=== PATIENT | male | born 1965 | race Caucasian/White ===

== ENCOUNTER 2016-10-06 13:15 | Emergency (ER) | payer OTHER ==
[~2016-10-06] VITALS: Ht 177.8 cm; Wt 99.8 kg
[~2016-10-06 13:15] MED LIST: ALPRAZOLAM2 MG PO; AMOXIL500 MG PO; BACTRIM DS 8001 TAB PO; METFORMIN HCL1000 M1 PO; METHADONE H5 MG/5 M1 PO; METHADONE HYDRO10 MG PO
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
[2016-10-06 14:45] LABS: ABSOLUTE BASOPHIL COUNT 0.1 /CUMM (0.0-0.2); ABSOLUTE EOSINOPHIL COUNT 0.1 /CUMM (0.0-0.7); ABSOLUTE GRANULOCYTE CT 6.1 /CUMM (1.4-6.5); ABSOLUTE LYMPH COUNT 3.4 /CUMM (1.2-3.4); BASOPHIL % 0.8 % (0.0-2.0); GRANULOCYTE % 56.8 % (42.2-75.2); HEMATOCRIT 43.1 % (42-52); MEAN CORPUSCULAR HGB 29.9 PG (27.0-31.0); MEAN CORPUSCULAR HGB CONC 33.7 G/DL (33.0-37.0); MEAN CORPUSCULAR VOLUME 88.6 FL (80.0-94.0); MEAN PLATELET VOLUME 8.6 FL (7.4-10.4); PLATELET COUNT 169 /CUMM (130-400); RBC DISTRIBUTION WIDTH 14.3 % (11.5-14.5); RED BLOOD CELL CT 4.86 /CUMM (4.70-6.10); WHITE BLOOD CELL COUNT 10.8 /CUMM (4.8-10.8)
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
[2016-10-06 16:28] VITALS: BP 114/62
[2016-10-06] MEDS ORDERED: PERCOCET 5-3251 EACH PO (16:28)
[2016-10-06] MEDS ORDERED: VALIUM2 M1 PO (16:39)
== END 2016-10-06 16:46 ==
LOC: ERH 13:15
PROVIDERS: Physician Assistant
DX: S82.452A Displaced comminuted fracture of shaft of left fibula, initial encounter for closed fracture (principal); S82.852A Displaced trimalleolar fracture of left lower leg, initial encounter for closed fracture; V28.4XXA Motorcycle driver injured in noncollision transport accident in traffic accident, initial encounter; Y93.9 Activity, unspecified; Y92.488 Other paved roadways as the place of occurrence of the external cause
CPT/HCPCS: 73590-LT; 73610-LT; 73630-LT; 96372

== ENCOUNTER 2016-10-11 18:56 | Inpatient (IN) | payer OTHER ==
[~2016-10-11] VITALS: Ht 177.8 cm; Wt 102.1 kg
[~2016-10-11 18:56] MED LIST changes: +PERCOCET 5-3251 EACH PO; +VALIUM2 M1 PO
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
--- NOTE | 2016-10-11 19:37 | NUR ---
EKG DONE DUE TO HR 132 ON ARRIVAL TO ROOM. PT REPORTS SEVERE PAIN. OLIVIER HERNANDEZ AT BEDSIDE FOR EVAL.
--- NOTE | 2016-10-11 20:14 | NUR ---
IV PLACED, MEDICATED WITH DILAUDID, TO US ON STRETCHER. SPLINT REMOVED BY OLIVIER HERNANDEZ.
--- NOTE | 2016-10-11 20:41 | NUR ---
LABS SENT (BLUE,SST,LAV,NUR, BC #2)
[2016-10-11 20:50] LABS: ABSOLUTE BASOPHIL COUNT 0.1 /CUMM (0.0-0.2); ABSOLUTE EOSINOPHIL COUNT 0.1 /CUMM (0.0-0.7); ABSOLUTE LYMPH COUNT 1.9 /CUMM (1.2-3.4); ABSOLUTE MONOCYTE COUNT 0.6 /CUMM (0.10-0.60); BASOPHIL % 0.6 % (0.0-2.0); GRANULOCYTE % 72.2 % (42.2-75.2); MEAN CORPUSCULAR HGB 30.2 PG (27.0-31.0); MEAN CORPUSCULAR HGB CONC 33.6 G/DL (33.0-37.0); MEAN CORPUSCULAR VOLUME 89.8 FL (80.0-94.0); MEAN PLATELET VOLUME 7.8 FL (7.4-10.4); PLATELET COUNT 160 /CUMM (130-400); RBC DISTRIBUTION WIDTH 13.7 % (11.5-14.5); WHITE BLOOD CELL COUNT 9.6 /CUMM (4.8-10.8)
[2016-10-11 20:51] LABS: EOSINOPHIL % 0.1 % (0-5); HEMATOCRIT 37.8 % (42-52)
--- NOTE | 2016-10-11 21:03 | ULTRASOUND REPORT ---
EXAMINATION: US TRIPLEX LOWER EXTREMITY, LEFT CLINICAL INFORMATION: Left lower extremity pain and swelling. COMPARISON: 10/06/2016. TECHNIQUE: Color-flow triplex imaging with spectral analysis and compression Doppler were performed on the left lower extremity. FINDINGS: Respiratory variation, normal compression and augmented flow are noted throughout the lower extremity. The visualized common femoral vein, femoral vein, profunda femoral vein, popliteal vein and midcalf peroneal and posterior tibial venous segments show no evidence of deep venous thrombosis. There is no Pascal's cyst. IMPRESSION: Normal triplex scan without evidence of deep venous thrombosis involving the left lower extremity.
--- NOTE | 2016-10-11 21:06 | RADIOLOGY REPORT ---
EXAMINATION: XR TIBIA AND FIBULA, LEFT CLINICAL INFORMATION: Fall. Pain. COMPARISON: None TECHNIQUE: AP and lateral views of the left tibia and fibula were obtained. FINDINGS: There is an oblique slightly displaced fracture of the proximal fibula at the proximal diaphysis. The tibia is intact. Knee and ankle joint are normal. IMPRESSION: Oblique fracture of the proximal shaft of the fibula.
--- NOTE | 2016-10-11 21:07 | RADIOLOGY REPORT ---
EXAMINATION: XR FOOT, LEFT CLINICAL INFORMATION: Fall. COMPARISON: None TECHNIQUE: AP, lateral, and oblique views of the left foot. FINDINGS: No fracture. No dislocation. No acute osseous abnormality. There is soft tissue swelling at the dorsum of the forefoot. Small plantar calcaneal spur. IMPRESSION: No acute osseous abnormality. Soft tissue swelling at the forefoot.
[2016-10-11] MEDS ORDERED: GLIPIZIDE ER10 M1 PO (21:32)
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
--- NOTE | 2016-10-11 22:04 | NUR ---
IV KEFZOL INFUSING. PHARMACY NOTIFIED OF NEED TO RE-TIME NEXT DOSE FROM 0000 TO 0400. PT MEDICATED WITH MORPHINE FOR C/O PAIN, AWARE THAT MORPHINE IS Q4H PRN, AWARE OF ALTERNATIVES OF TYLENOL/TORADOL ALSO. HOUSE STAFF AT BEDSIDE NOW. LEFT LEG ELEVATED FOR COMFORT. PT WEARING T-SHIRT AND SHORT, REFUSES TO WEAR GOWN, REFUSES RED SOCK ON LEFT FOOT. STILL UNABLE TO PROVIDE URINE SAMPLE, URINAL AT BEDSIDE.
--- NOTE | 2016-10-11 22:33 | NUR ---
REPEAT LACTIC, ABO CONFIRMATION AND EXTRA SST AND LAV DRAWN AND SENT. PT AWARE OF PENDING TRANSFER TO FLOOR. REMINDED AGAIN OF SCHEDULE OF PRN MORPHINE.
--- NOTE | 2016-10-11 22:43 | NUR ---
REPORT CALLED TO SONIA ON 2NA.
[2016-10-11 23:00] VITALS: BP 120/64
--- NOTE | 2016-10-11 23:53 | Admission Certification ---
Admission Certification Certification Statement - As attending physician, I certify that at the time of - admission, based on clinical presentation, severity of - symptoms, need for further diagnostic testing and - therapeutic interventions, and risk of adverse outcomes - without in-hospital treatment, in my clinical assessment, - this patient requires an acute hospital stay for a minimum - of two nights or longer. I have also considered psychsocial - factors such as support system, advanced age, financial - issues, cognitive issues, and failed out-patient treatments, - past re-admission history, safety of patient, and lack of - compliance as applicable. Specific rationale supporting this admission is: Left lower extremity cellulitis.
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
[2016-10-12 07:09] VITALS: BP 100/70
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
[2016-10-12 08:39] LABS: ABSOLUTE EOSINOPHIL COUNT 0.1 /CUMM (0.0-0.7); ABSOLUTE GRANULOCYTE CT 3.4 /CUMM (1.4-6.5); ABSOLUTE LYMPH COUNT 1.8 /CUMM (1.2-3.4); ABSOLUTE MONOCYTE COUNT 0.6 /CUMM (0.10-0.60); EOSINOPHIL % 2.3 % (0-5); MEAN CORPUSCULAR HGB 30.6 PG (27.0-31.0)
[2016-10-12 08:47] LABS: ABSOLUTE BASOPHIL COUNT 0 /CUMM (0.0-0.2); BASOPHIL % 0.7 % (0.0-2.0); GRANULOCYTE % 57.4 % (42.2-75.2); MEAN CORPUSCULAR HGB CONC 34.1 G/DL (33.0-37.0); MEAN CORPUSCULAR VOLUME 89.7 FL (80.0-94.0); MEAN PLATELET VOLUME 8.2 FL (7.4-10.4); PLATELET COUNT 131 /CUMM (130-400); RBC DISTRIBUTION WIDTH 13.6 % (11.5-14.5)
[2016-10-12 09:04] LABS: HEMATOCRIT 32.3 % (42-52)
--- NOTE | 2016-10-12 12:44 | NUR ---
PT IS COMPLAINING THAT THE PAIN MEDICATIONS ORDERED FOR HIM ARE NOT HELPING HIS PAIN. MD SAPNA ROMERO MADE AWARE. WILL CONTINUE TO MONITOR.
--- NOTE | 2016-10-12 12:54 | RADIOLOGY REPORT ---
EXAMINATION: XR ANKLE, LEFT CLINICAL INFORMATION: maisonneuve fracture left ankle. COMPARISON: None TECHNIQUE: AP, lateral, and mortise views of the left ankle. FINDINGS: Only the distal tibia and fibula and the ankle joint is in the [id number]. There is bimalleolar soft tissue swelling. No fracture or dislocation seen involving the distal tibia or fibula. A small calcaneal heel spur is seen. Also visualized is anterior talotibial spurring and retrocalcaneal spur. IMPRESSION: No visible acute fracture seen on the visualized images. There is bimalleolar soft tissue swelling. There is mild degenerative spurring talotibial joint, retrocalcaneal and the calcaneal heel.
[2016-10-12 14:08] VITALS: BP 130/60
[2016-10-12 21:42] VITALS: BP 124/60
--- NOTE | 2016-10-13 01:00 | NUR ---
PT REPORTS PAIN 04/08, NOTIFIED POLY PHILLIPS MD.
[2016-10-13 06:54] VITALS: BP 128/60
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
[2016-10-13 13:42] VITALS: BP 158/90
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
[2016-10-13] MEDS ORDERED: KEFLEX500 M1 PO (17:34)
--- NOTE | 2016-10-13 18:00 | NUR ---
1800- PT COMPLAINING OF PAIN 10/10 TO LLE. STATES HE DOES NOT GET RELIEF FROM ROXICODONE 15 MG PO Q4. TIME CHANGED FROM Q6 TO Q4 THIS AFTERNOON. PT STILL STATES HE IS IN PAIN 10/10. PT'S MOTHER CALLED ME THIS MORNING DUE TO PT CALLING HER AND TELLING HER TO BRING PAIN MEDS TO HIM. PT HAS ALSO ASKED OF [facility] IF SHE HAD ANY PAIN MEDICATION 15 MINUTES AGO. ABOVE REPORTED TO DR. 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
[2016-10-13 21:59] VITALS: BP 140/70
[2016-10-14 07:00] VITALS: BP 138/80
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
[2016-10-14 09:37] LABS: ABSOLUTE BASOPHIL COUNT 0 /CUMM (0.0-0.2); ABSOLUTE EOSINOPHIL COUNT 0.1 /CUMM (0.0-0.7); ABSOLUTE GRANULOCYTE CT 6.3 /CUMM (1.4-6.5); ABSOLUTE LYMPH COUNT 1.6 /CUMM (1.2-3.4); ABSOLUTE MONOCYTE COUNT 0.5 /CUMM (0.10-0.60); BASOPHIL % 0.3 % (0.0-2.0); EOSINOPHIL % 1.7 % (0-5); GRANULOCYTE % 73.5 % (42.2-75.2); HEMATOCRIT 36.2 % (42-52); MEAN CORPUSCULAR HGB 30.8 PG (27.0-31.0); MEAN CORPUSCULAR HGB CONC 34.6 G/DL (33.0-37.0); MEAN PLATELET VOLUME 8.4 FL (7.4-10.4); PLATELET COUNT 177 /CUMM (130-400); RBC DISTRIBUTION WIDTH 13.5 % (11.5-14.5); RED BLOOD CELL CT 4.07 /CUMM (4.70-6.10); WHITE BLOOD CELL COUNT 8.6 /CUMM (4.8-10.8)
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
[2016-10-14 14:35] VITALS: BP 122/80
[2016-10-14 22:57] VITALS: BP 130/90
[2016-10-15 06:59] VITALS: BP 100/70
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
--- NOTE | 2016-10-15 09:46 | NUR ---
PHYSICAL THERAPY: ATTEMPTED TO SEE PATIENT THIS MORNING, PATIENT IS REFUSING TO PARTICIPATE. PT EDUCATED ON THE BENEFITS OF SITTING EOB OR STANDING FOR A SHORT PERIOD OF TIME, HOWEVER PATIENT CONTINUES TO REFUSE. PT REPORTS THAT HE IS IN 10/10 PAIN APPEARING CALM AND SHOWING NO SIGNS OF DISTRESS. PT'S DEMEANER AND APPEARANCE NOT CONSISTENT WITH 10/10 PAIN HOWEVER PT IS REQUESTING ADDITIONAL PAIN MEDS AND REFUSES TO COOPERATE WITH P.T. UNLESS HE GETS MORE MEDS. NSG NOTIFIED AND STATES THAT THE PT CANNOT HAVE MORE MEDS AT THIS TIME. WILL ATTEMPT TO SEE PT AGAIN IN THE AFTERNOON APPROPRIATE. THANK YOU.
[2016-10-15 13:34] VITALS: BP 128/80
[2016-10-15] MEDS ORDERED: KEFLEX500 M1 PO (14:00)
[2016-10-15] MEDS ORDERED: OXYCODONE HCL15 M1 PO (14:06)
[2016-10-15 14:39] VITALS: BP 128/80
== END 2016-10-15 16:00 | DRG 383 ==
LOC: ENRESERVTM → ENRESERVDT → ERH 18:56 → 2NA 21:45 → ERHI 21:45 → 2NA 22:52
PROVIDERS: Internal Medicine Hematology & Oncology; Physician Assistant; Student in an Organized Health Care Education/Training Program; ADMIT Student in an Organized Health Care Education/Training Program
DX: L03.115 Cellulitis of right lower limb (principal); B18.2 Chronic viral hepatitis C; E11.9 Type 2 diabetes mellitus without complications; F17.200 Nicotine dependence, unspecified, uncomplicated; B19.20 Unspecified viral hepatitis C without hepatic coma; S82.891D Other fracture of right lower leg, subsequent encounter for closed fracture with routine healing; S82.401D Unspecified fracture of shaft of right fibula, subsequent encounter for closed fracture with routine healing; I10 Essential (primary) hypertension; Z79.84 Long term (current) use of oral hypoglycemic drugs; F41.9 Anxiety disorder, unspecified; W18.30XD Fall on same level, unspecified, subsequent encounter
CPT/HCPCS: 2NAP; 2NASP; 36415; 73590-LT; 73610-LT; 73630-LT; 81001; 82436; 87040; 93005; 93010; 96374; 96375; J0690; J1170; J1644

== ENCOUNTER 2016-11-11 18:04 | Emergency (ER) | payer OTHER ==
[~2016-11-11] VITALS: Ht 177.8 cm; Wt 99.8 kg
[~2016-11-11 18:04] MED LIST changes: +GLIPIZIDE ER10 M1 PO; +KEFLEX500 M1 PO; +OXYCODONE HCL15 M1 PO
[2016-11-11 19:29] LABS: ABSOLUTE BASOPHIL COUNT 0 /CUMM (0.0-0.2); ABSOLUTE EOSINOPHIL COUNT 0.2 /CUMM (0.0-0.7); ABSOLUTE GRANULOCYTE CT 3.5 /CUMM (1.4-6.5); ABSOLUTE LYMPH COUNT 1.6 /CUMM (1.2-3.4); ABSOLUTE MONOCYTE COUNT 0.3 /CUMM (0.10-0.60); BASOPHIL % 0.3 % (0.0-2.0); EOSINOPHIL % 3.4 % (0-5); GRANULOCYTE % 61.9 % (42.2-75.2); HEMATOCRIT 40.4 % (42-52); MEAN CORPUSCULAR HGB 29.6 PG (27.0-31.0); MEAN CORPUSCULAR HGB CONC 33.4 G/DL (33.0-37.0); MEAN CORPUSCULAR VOLUME 88.6 FL (80.0-94.0); MEAN PLATELET VOLUME 8.9 FL (7.4-10.4); RED BLOOD CELL CT 4.57 /CUMM (4.70-6.10); WHITE BLOOD CELL COUNT 5.6 /CUMM (4.8-10.8)
[2016-11-11 19:40] LABS: PLATELET COUNT 108 /CUMM (130-400)
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
[2016-11-11] MEDS ORDERED: BACTRIM DS TAB1 EACH PO (19:53)
[2016-11-11] MEDS ORDERED: KEFLEX500 M1 PO (19:53)
[2016-11-11] MEDS ORDERED: OXYCODONE HCL5 M1 PO (19:53)
[2016-11-11 20:35] VITALS: BP 138/86
[2016-11-11] MEDS ORDERED: LOTRIMIN AF12 GM TOP (21:21)
== END 2016-11-11 20:36 ==
LOC: ERH 18:04
PROVIDERS: Physician Assistant Medical
DX: L03.116 Cellulitis of left lower limb (principal); B35.3 Tinea pedis
CPT/HCPCS: 87040; 96374; J0690

== ENCOUNTER 2016-11-23 17:30 | Emergency (ER) | payer OTHER ==
[~2016-11-23] VITALS: Ht 177.8 cm; Wt 99.8 kg
[~2016-11-23 17:30] MED LIST changes: +BACTRIM DS TAB1 EACH PO; +LOTRIMIN AF12 GM TOP; +OXYCODONE HCL5 M1 PO
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
[2016-11-23] MEDS ORDERED: CLOTRIMAZOLE15 GM TOP (18:29)
[2016-11-23] MEDS ORDERED: OXYCODONE HCL20 M2 PO (18:29)
[2016-11-23] MEDS ORDERED: DIAZEPAM2 M1 (18:30)
[2016-11-23] MEDS ORDERED: FLUOXETINE HCL20 M2 (18:30)
[2016-11-23] MEDS ORDERED: MELOXICAM15 M1 PO (19:27)
[2016-11-23 19:32] VITALS: BP 130/76
--- NOTE | 2016-12-10 13:42 | RADIOLOGY REPORT ---
EXAMINATION: XR ANKLE, LEFT CLINICAL INFORMATION: Fall. History of a recent proximal fibular fracture. Wearing a walking boot. COMPARISON: Multiple priors, most recent left ankle radiographs dated 10/12/2016. TECHNIQUE: AP, lateral, and mortise views of the left ankle. FINDINGS: No distal tibia or fibular fracture. The proximal fibula is not included on this examination. Small tibiotalar marginal osteophytes. The ankle mortise is well-maintained. No joint space narrowing. No osseous erosion. Plantar and dorsal calcaneal spurs. Mild circumferential soft tissue swelling. IMPRESSION: 1. No fracture. The previously seen proximal fracture is not included on this examination. 2. Mild circumferential soft tissue edema. 3. Mild tibiotalar osteoarthritis. 4. Small plantar and dorsal calcaneal spurs.
== END 2016-11-23 19:33 ==
LOC: ERH 17:30
DX: M25.572 Pain in left ankle and joints of left foot (principal)
CPT/HCPCS: 73610-LT

== ENCOUNTER 2017-10-07 14:07 | Emergency (ER) | payer OTHER ==
[~2017-10-07 14:07] MED LIST changes: +CLONIDINE HCL0.1 MG; +CLOTRIMAZOLE15 GM TOP; +CYCLOBENZAPRINE5 M2 PO; +DIAZEPAM2 M1; +FLUOXETINE HCL20 M2; +LOSARTAN POTASS25 M1; +MELOXICAM15 M1 PO; +OXYCODONE HCL20 M2 PO
--- NOTE | 2017-10-07 14:46 | ED AMS/SEIZURE/WEAK/DIZZY ---
History of Present Illness General Chief Complaint: Altered Mental Status Stated Complaint: BIBA FOR ALTERED MENTAL STATUS/EVAL Source: patient Exam Limitations: no limitations Vital Signs & Intake/Output Vital Signs & Intake/Output Vital Signs Date Time Temp Pulse Resp B/P B/P Pulse O2 O2 Flow FiO2 Mean Ox Delivery Rate 10/07 1726 68 18 82/58 100 Room Air 10/07 1646 82 16 153/87 93 Room Air 10/07 1545 68 18 106/60 95 Room Air 10/07 1436 80 16 100/62 96 Room Air 10/07 1410 96.2 80 18 112/60 94 Room Air Allergies Coded Allergies: No Known Allergies (08/08/17) Reconcile Medications Clonidine HCl (Unknown Strength) TABLET (Unknown Dose) UNKNOWN (Reported) Cyclobenzaprine HCl 5 MG TABLET 1 TAB PO TIDPRN PRN muscle relaxer Glipizide (Glipizide ER) 10 MG TAB.ER.24 1 TAB PO DAILY DIABETES (Reported) Losartan Potassium (Unknown Strength) TABLET (Unknown Dose) UNKNOWN (Reported ) Metformin HCl 1,000 MG TABLET 1 TAB PO BID DM (Reported) Sulfamethoxazole/Trimethoprim (Bactrim Ds Tablet) 800 MG-160 MG TABLET 1 TAB PO BID CELLULITIS Triage Note: 52 YEAR OLD MALE BIBA FROM HOME. POLICE WERE CALLED BY FAMILY. EMS FOUND HIM ASLEEP ON SOFA AND HYPERTENSIVE WITH FINGER STICK BLOOD SUGAR OF 481. HE WAS ABLE TO GET DRESSED & AMBULATE TO AMBULANCE. HX HEPATITIS C (ON HARVONI), HX DEPRESSION, HX OPIOIDS AND COCAINE. ALSO PSYCHE HX. PATIENT APPEARS DROWSY, BUT ABLE TO ANSWER QUESTIONS. HEART RATE = 80. BP = 112/60. Triage Nurses Notes Reviewed? yes HPI: Patient presents for evaluation of altered mental status/somnolence. History is extremely limited given the patient's current clinical condition. Family called the police due to altered mental status and EMS found patient to Asleep on the sofa. Past History Travel History Traveled to [place] past 21 day No Medical History Any Pertinent Medical History? see below for history Neurological: NONE EENT: NONE Cardiovascular: htn Respiratory: NONE Gastrointestinal: NONE Hepatic: HEP C Renal: NIDDM Musculoskeletal: disk herniation, MULTIPLE SURGIRES Psychiatric: DEPRESSION, PAIN MANAGEME Endocrine: NIDDM Blood Disorders: HEPC Cancer(s): NONE History of MRSA: No History of VRE: No History of CDIFF: No Surgical History Surgical History: knee surgery, right shoulder surgery Psychosocial History Who do you live with Patient and family Services at Home None What is your primary language Sami Tobacco Use: Current Not Daily ETOH Use: UNKNOWN Illicit Drug Use: UNKNOWN Family History Family History, If Any: MOTHER FATHER Relation not specified for: FH: arthritis FH: pancreatic cancer Hx Contributory? No Review of Systems Review of Systems Constitutional: Reports: no symptoms. EENTM: Reports: no symptoms. Respiratory: Reports: no symptoms. Cardiovascular: Reports: no symptoms. GI: Reports: no symptoms. Genitourinary: Reports: no symptoms. Musculoskeletal: Reports: no symptoms. Skin: Reports: no symptoms. Neurological/Psychological: Reports: no symptoms. Hematologic/Endocrine: Reports: no symptoms. Immunologic/Allergic: Reports: no symptoms. All Other Systems: Reviewed and Negative Physical Exam Physical Exam General Appearance: SEE BELOW Comments: Gen.: Well-nourished, well-developed, no acute respiratory distress. Somnolent but easily arousable. Head: Normocephalic, atraumatic. Eyes: Normal inspection bilaterally, PERRLA Ears: Normal inspection bilaterally Nose: Normal inspection Throat/mouth : Moist mucosa Neck: Supple, full range of motion, no goiter Heart: Regular rate and rhythm, no murmurs rubs or gallops Lungs: Clear to auscultation bilaterally with normal air entry Chest: Nontender Back: Normal range of motion Abdomen: Soft, nontender, nondistended, normal bowel sounds Extremities: Normal range of motion grossly, equal radial pulses, no cyanosis, mild bilateral pitting pretibial edema Neurologic: Cranial nerves grossly intact, speech is clear Skin: warm and dry Psychiatric: Calm, inconsistently cooperative, no apparent delusions or hallucinations, paucity of speech secondary to somnolence Core Measures ACS in differential dx? No CVA/TIA Diagnosis No Sepsis Present: No Sepsis Focused Exam Completed? No Progress Differential Diagnosis: anemia, CVA/stroke, dehydration, drug intoxication, electrolyte imbalance, hypoglycemia, hypoxia, intracranial Hem., intracranial mass/tumor, pneumonia, sepsis, seizure disorder, UTI/pyelo Plan of Care: Orders Procedure Date/time Status Saline Lock 10/07 1444 Active CULTURE,URINE 10/07 1444 Active URINE DRUG SCREEN FOR ER ONLY 10/07 1444 Complete URINALYSIS 04/10 1445 Complete THYROID STIMULATING HORMONE 10/07 144 Complete TROPONIN LEVEL 10/07 144 Complete T3 UPTAKE (THYROXINE BIND CAP) 10/07 144 Complete THYROXINE 10/07 144 Complete ETHANOL 10/07 144 Complete COMPREHENSIVE METABOLIC PANEL 10/07 144 Complete CBC WITHOUT DIFFERENTIAL 10/07 1444 Complete EKG 10/07 144 Active Laboratory Tests 10/07/17 1640: Urine Opiates Screen 253, Methadone Screen > 735 H, Barbiturate Screen < 60, Ur Phencyclidine Scrn < 6.00, Amphetamines Screen < 100, U Benzodiazepines Scrn > 800 H, Urine Cocaine Screen < 50, Urine Cannabis Screen < 5.00, Urine Color YEL , Urine Clarity CLEAR, Urine pH 6.5, Ur Specific Lilly 1.015, Urine Protein NEG, Urine Ketones NEG, Urine Nitrite NEG, Urine Bilirubin NEG, Urine Urobilinogen 0.2, Ur Leukocyte Esterase NEG, Ur Microscopic EXAM NOT REQUIRED, Urine Hemoglobin NEG, Urine Glucose >=1000 H 10/07/17 1620: Anion Gap 8, Estimated GFR > 60, BUN/Creatinine Ratio 20.0, Glucose 356 H, Calcium 8.5, Total Bilirubin 0.6, AST 102 H, ALT 94 H, Alkaline Phosphatase 119, Troponin I < 0.01, Total Protein 6.9, Albumin 3.3 L, Globulin 3.6, Albumin /Globulin Ratio 0.9 L, TSH 1.470, Thyroxine (T4) 8.5, Thyroxine Binding Indx 30.9, Serum Alcohol < 10.0 10/07/17 1445: CBC w Diff NO MAN DIFF REQ, RBC 4.17 L, MCV 88.7, MCH 30.3, MCHC 34.2, RDW 14.6 H, MPV 9.3, Gran % 63.3, Lymphocytes % 28.5, Monocytes % 5.5, Eosinophils % 2.4 , Basophils % 0.3, Absolute Granulocytes 3.2, Absolute Lymphocytes 1.5, Absolute Monocytes 0.3, Absolute Eosinophils 0.1, Absolute Basophils 0 Microbiology 10/07 1640 URINE ROUT: Urine Culture - RECD Diagnostic Imaging: Discussed w/RAD: Radiology Read. Radiology Impression: PATIENT: EDSON SARGENT PRESENT AGE: 52 PATIENT ACCOUNT NO: [id number] : 66 LOCATION: [facility] ORDERING PHYSICIAN: David Kamara MD SERVICE DATE: 10/07/17 EXAM TYPE: CAT - CT HEAD WO IV CONTRAST EXAMINATION: CT HEAD WITHOUT CONTRAST CLINICAL INFORMATION: 52-year-old male patient with somnolence and acute mental status change. COMPARISON: CT the brain done 07/04/2007. TECHNIQUE: Contiguous axial imaging was performed from the skull base to vertex without intravenous administration of contrast. DLP: 621 mGy-cm FINDINGS: There is no evidence of acute intracranial hemorrhage or territorial infarction. No abnormal mass effect or midline shift is seen. Ramos to white matter differentiation is well preserved. No extra-axial fluid collections are identified. The ventricles are normal in size. There is no abnormal attenuation within the brain parenchyma. The osseous structures and soft tissues are normal. The mastoid air cells and visualized portions of the paranasal sinuses are well aerated. IMPRESSION: No acute intracranial pathology. DICTATED BY: Pradeep Capps MD DATE/TIME DICTATED:10/07/171747 CUSTOMER OPERATIONS SPECIALIST:AYALA DATE/TIME TRANSCRIBED:1747 CONFIDENTIAL, DO NOT COPY WITHOUT APPROPRIATE AUTHORIZATION. < Electronically signed in Other Vendor System> SIGNED BY: Pradeep Capps MD 10/07/171753 CXR Impression: PATIENT: EDSON SARGENT PRESENT AGE: 52 PATIENT ACCOUNT NO: [id number] : 66 LOCATION: [facility] ORDERING PHYSICIAN: David Kamara MD SERVICE DATE: 10/07/17 EXAM TYPE: RAD - XRY-PORTABLE CHEST XRAY EXAMINATION: XR PORTABLE CHEST CLINICAL INFORMATION: Altered mental status COMPARISON: None TECHNIQUE: Portable frontal view of the chest was obtained. FINDINGS: The lungs are mildly hypoinflated. There is streaky left basilar opacity favoring atelectasis. No additional dense consolidation is seen bilaterally. No evidence of pneumothorax, pleural effusion, or pulmonary edema. Cardiac size appears near the upper limits of normal for low lung volumes. No acute osseous findings are seen. IMPRESSION: Streaky left basilar opacity favoring atelectasis. DICTATED BY: Juan F Fernando MD DATE/TIME DICTATED:1533 CUSTOMER OPERATIONS SPECIALIST:AYALA DATE/TIME TRANSCRIBED:10/07/171533 CONFIDENTIAL, DO NOT COPY WITHOUT APPROPRIATE AUTHORIZATION. <Electronically signed in Other Vendor System> SIGNED BY: Kassie BARONJuan F 10/07/17 1546 Initial ED EKG: NSR, rate (66), no ST T wave changes Comments: 10/07/2017 6:00:57 PM EDSON APPEARS CONSIDERABLY MORE AWAKE ALERT AND INTERACTIVE. I have updated him on his test results. He offers no complaint at this time and wishes to return home. He denies SI or HI. He has declined evaluation by crisis. I have notified him that we are awaiting a few more test results to return and at that point she could contact his mother regarding a ride home (he states he would like to go to his mother's place to store his motorcycle inside). 10/07/2017 7:47:42 PM patient's nurse spoke with his mother who refused to warehouse picker Edson from the emergency department. She felt a "needed help". We approached him with this but he refused any additional care here in the emergency department despite my repeated off first. He denies SI or HI. He does not feel evaluation by crisis would be beneficial. He intends to follow-up with in inpatient rehabilitation facility as soon as possible. He is alert and oriented to person place time and current events. He shows insight into his current clinical condition and habits. Departure Departure Disposition: HOME OR SELF CARE Condition: Stable Clinical Impression Primary Impression: Polysubstance abuse Secondary Impressions: Hyperglycemia, Methadone dependence Referrals: Lucrecia Freeman APRN (PCP/Family) Additional Instructions: Follow-up with your behavioral health appointment tomorrow as scheduled. Notify your primary care doctor of this emergency department visit and treatment plan. Take medications only as prescribed and did not take any other drugs. Return if any concerns or sudden worsening. Departure Forms: Customer Survey General Discharge Information
[2017-10-07 15:08] LABS: ABSOLUTE BASOPHIL COUNT 0 /CUMM (0.0-0.2); ABSOLUTE EOSINOPHIL COUNT 0.1 /CUMM (0.0-0.7); ABSOLUTE GRANULOCYTE CT 3.2 /CUMM (1.4-6.5); ABSOLUTE LYMPH COUNT 1.5 /CUMM (1.2-3.4); ABSOLUTE MONOCYTE COUNT 0.3 /CUMM (0.10-0.60); BASOPHIL % 0.3 % (0.0-2.0); EOSINOPHIL % 2.4 % (0-5); GRANULOCYTE % 63.3 % (42.2-75.2); MEAN CORPUSCULAR HGB 30.3 PG (27.0-31.0); MEAN CORPUSCULAR HGB CONC 34.2 G/DL (33.0-37.0); MEAN CORPUSCULAR VOLUME 88.7 FL (80.0-94.0); MEAN PLATELET VOLUME 9.3 FL (7.4-10.4); PLATELET COUNT 105 /CUMM (130-400); RBC DISTRIBUTION WIDTH 14.6 % (11.5-14.5); RED BLOOD CELL CT 4.17 /CUMM (4.70-6.10); WHITE BLOOD CELL COUNT 5.1 /CUMM (4.8-10.8)
--- NOTE | 2017-10-07 15:46 | RADIOLOGY REPORT ---
EXAMINATION: XR PORTABLE CHEST CLINICAL INFORMATION: Altered mental status COMPARISON: None TECHNIQUE: Portable frontal view of the chest was obtained. FINDINGS: The lungs are mildly hypoinflated. There is streaky left basilar opacity favoring atelectasis. No additional dense consolidation is seen bilaterally. No evidence of pneumothorax, pleural effusion, or pulmonary edema. Cardiac size appears near the upper limits of normal for low lung volumes. No acute osseous findings are seen. IMPRESSION: Streaky left basilar opacity favoring atelectasis.
[2017-10-07 17:26] VITALS: BP 82/58
--- NOTE | 2017-10-07 17:54 | CT SCAN REPORT ---
EXAMINATION: CT HEAD WITHOUT CONTRAST CLINICAL INFORMATION: 52-year-old male patient with somnolence and acute mental status change. COMPARISON: CT the brain done 07/04/2007. TECHNIQUE: Contiguous axial imaging was performed from the skull base to vertex without intravenous administration of contrast. DLP: 621 mGy-cm FINDINGS: There is no evidence of acute intracranial hemorrhage or territorial infarction. No abnormal mass effect or midline shift is seen. Ramos to white matter differentiation is well preserved. No extra-axial fluid collections are identified. The ventricles are normal in size. There is no abnormal attenuation within the brain parenchyma. The osseous structures and soft tissues are normal. The mastoid air cells and visualized portions of the paranasal sinuses are well aerated. IMPRESSION: No acute intracranial pathology.
== END 2017-10-07 19:22 ==
LOC: ERH 14:07
PROVIDERS: Emergency Medicine
DX: F11.20 Opioid dependence, uncomplicated (principal); E11.65 Type 2 diabetes mellitus with hyperglycemia; F14.10 Cocaine abuse, uncomplicated
CPT/HCPCS: 71045; 80307; 81003; 87086; 93005; 93010; 96372; G0480; J1815

== ENCOUNTER 2017-10-26 12:06 | Emergency (ER) | payer OTHER ==
[~2017-10-26] VITALS: Ht 177.8 cm; Wt 104.3 kg
--- NOTE | 2017-10-26 12:20 | ED AMS/SEIZURE/WEAK/DIZZY ---
History of Present Illness General Chief Complaint: General Adult Stated Complaint: BIBA FOR EVALUATION Source: patient, EMS Exam Limitations: intoxication Vital Signs & Intake/Output Vital Signs & Intake/Output Vital Signs Date Time Temp Pulse Resp B/P B/P Pulse O2 O2 Flow FiO2 Mean Ox Delivery Rate 10/26 1432 97.3 82 18 110/76 97 Room Air 10/26 1213 97.3 86 18 109/67 97 Room Air Allergies Coded Allergies: No Known Allergies (08/08/17) Reconcile Medications Clonidine HCl (Unknown Strength) TABLET (Unknown Dose) UNKNOWN (Reported) Cyclobenzaprine HCl 5 MG TABLET 1 TAB PO TIDPRN PRN muscle relaxer Glipizide (Glipizide ER) 10 MG TAB.ER.24 1 TAB PO DAILY DIABETES (Reported) Losartan Potassium (Unknown Strength) TABLET (Unknown Dose) UNKNOWN (Reported ) Metformin HCl 1,000 MG TABLET 1 TAB PO BID DM (Reported) Sulfamethoxazole/Trimethoprim (Bactrim Ds Tablet) 800 MG-160 MG TABLET 1 TAB PO BID CELLULITIS Triage Nurses Notes Reviewed? yes Onset: Abrupt Duration: unknown duration Timing: recent history Injury Environment: street HPI: 52-year-old male was brought to the emergency room by ambulance after being found sitting on a bench outside a bar not responding. He was brought in by EMS. The patient is clinically intoxicated and offers no information or complaints. (Rodolfo Arroyo) Past History Travel History Traveled to [place] past 21 day No Medical History Any Pertinent Medical History? see below for history Neurological: NONE EENT: NONE Cardiovascular: htn Respiratory: NONE Gastrointestinal: NONE Hepatic: HEP C Renal: NIDDM Musculoskeletal: disk herniation, MULTIPLE SURGIRES Psychiatric: DEPRESSION, PAIN MANAGEME Endocrine: NIDDM Blood Disorders: HEPC Cancer(s): NONE History of MRSA: No History of VRE: No History of CDIFF: No Surgical History Surgical History: knee surgery, right shoulder surgery Psychosocial History Who do you live with Patient and family Services at Home None What is your primary language Chilean Family History Family History, If Any: MOTHER FATHER Relation not specified for: FH: arthritis FH: pancreatic cancer Hx Contributory? No (Rodolfo Arroyo) Review of Systems Review of Systems Constitutional: Reports: no symptoms. EENTM: Reports: no symptoms. Respiratory: Reports: no symptoms. Cardiovascular: Reports: no symptoms. GI: Reports: no symptoms. Genitourinary: Reports: no symptoms. Musculoskeletal: Reports: no symptoms. Skin: Reports: no symptoms. Neurological/Psychological: Reports: see HPI. Hematologic/Endocrine: Reports: no symptoms. Immunologic/Allergic: Reports: no symptoms. All Other Systems: Reviewed and Negative (Rodolfo Arroyo) Physical Exam Physical Exam General Appearance: well developed/nourished, mild distress, intoxicated Head: atraumatic Eyes: Bilateral: EOMI. Ears, Nose, Throat: normal ENT inspection Neck: normal inspection Respiratory: no respiratory distress Cardiovascular: regular rate/rhythm Gastrointestinal: soft, non-tender Back: normal inspection Extremities: normal range of motion Neurologic/Psych: lethargic Skin: intact Core Measures ACS in differential dx? No CVA/TIA Diagnosis No Sepsis Present: No Sepsis Focused Exam Completed? No (Rodolfo Arroyo) Progress Differential Diagnosis: alcohol intoxication, dehydration, drug intoxication, encephalitis, hypoxia, seizure disorder Plan of Care: Orders Procedure Date/time Status Regular Diet 10/27 B Active ED CRISIS PSYCH CONSULT 10/26 1522 Active Patient Safety Monitor 10/26 1242 Active Restraint- Behavioral (Order) 10/26 1242 Active URINE DRUGS OF ABUSE 10/26 1220 Complete TROPONIN LEVEL 10/26 1220 Complete LIPASE 10/26 1220 Complete ETHANOL 10/26 1220 Complete COMPREHENSIVE METABOLIC PANEL 10/26 1220 Complete CBC WITHOUT DIFFERENTIAL 10/26 1220 Complete AMYLASE 10/26 1220 Complete EKG 10/26 1220 Active Laboratory Tests 10/26/ 1315: Anion Gap 10, Estimated GFR > 60, BUN/Creatinine Ratio 20.0, Glucose 307 H, Calcium 8.6, Total Bilirubin 0.4, AST 133 H, ALT 115 H, Alkaline Phosphatase 129 H, Troponin I < 0.01, Total Protein 6.9, Albumin 3.5, Globulin 3.4, Albumin /Globulin Ratio 1.0 L, Amylase 74, Lipase 252, CBC w Diff NO MAN DIFF REQ, RBC 4.37 L, MCV 89.5, MCH 29.9, MCHC 33.4, RDW 14.8 H, MPV 8.3, Gran % 61.6, Lymphocytes % 29.0, Monocytes % 7.1, Eosinophils % 1.9, Basophils % 0.4, Absolute Granulocytes 3.4, Absolute Lymphocytes 1.6, Absolute Monocytes 0.4, Absolute Eosinophils 0.1, Absolute Basophils 0, Serum Alcohol < 10.0 10/26/17 1232: Urine Opiates Screen 264, Methadone Screen > 735 H, Barbiturate Screen < 60, Ur Phencyclidine Scrn < 6.00, Amphetamines Screen < 100, U Benzodiazepines Scrn > 800 H, Urine Cocaine Screen < 50, Urine Cannabis Screen > 80.00 H Initial ED EKG: normal sinus rhythm, rate (71) (Rodolfo Arroyo) Departure Departure Disposition: HOME OR SELF CARE Condition: Stable Clinical Impression Primary Impression: Opioid abuse Referrals: Lucrecia Freeman APRN (PCP/Family) Additional Instructions: You are leaving AGAINST MEDICAL ADVICE. It has been recommended that she stay here to see the crisis team. Please go over all results of today's visit with your primary care doctor. Contact your primary care doctor to let them know you were here in the emergency room. There may be nonspecific findings which may not be related to your visit today here in the emergency room but may require further evaluation and chronic monitoring by your primary care doctor. If you had a laceration today the chance of foreign body always remains. You should follow-up with your primary care doctor for recheck in 3-5 days for a wound check. If you had an x-ray done there is a chance that a fracture could have been missed on initial read and you should follow-up with your primary care doctor for repeat x-rays if symptoms persist. If your blood pressure was elevated here in the emergency room please have rechecked by [facility] primary care doctor within the next 48. If you were prescribed a narcotic here in the emergency room or any type of controlled substances you're not allowed to drive while taking this medication or operate any type of heavy machinery. Narcotics can make you feel lightheaded dizziness nausea and can cause constipation. You may need to fiber picker a stool softener. Thank you for choosing [facility] emergency room. Please return to the emergency room immediately if you have any other concerns worsening of symptoms. Departure Forms: Customer Survey General Discharge Information Comments 10/26/2017 6:10:11 PM Patient clinically sober and signed out AGAINST MEDICAL ADVICE. He is getting a ride. She does not want to stay and see crisis. Patient was seen and evaluated by Dr. salcedo. Return if any other concerns worsening symptoms. Altered mental status resolved after Narcan. (Rodolfo Arroyo) PA/CORPORATE STRATEGY ANALYST Co-Sign Statement Statement: ED Attending supervision documentation- x I saw and evaluated the patient. I have also reviewed all the pertinent lab results and diagnostic results. I agree with the findings and the plan of care as documented in the PA's/CORPORATE STRATEGY ANALYST's documentation. [] I have reviewed the ED Record and agree with the PA's/CORPORATE STRATEGY ANALYST's documentation. [] Additions or exceptions (if any) to the PAs/CORPORATE STRATEGY ANALYST's note and plan are summarized below: [] (Hannah BARON,José) ED Attending Observation Initial Observation Note: I have seen and personally examined DENNY SARGENT on 10/26/17 at 1423. I agree with the current emergency department documentation. The disposition (admission or discharge) is uncertain at this time, he needs a period of observation for the following reason(s): The ED Nurse caring for this patient has been personally informed as to what the patient is being observed for. (Rodolfo Arroyo)
[2017-10-26 13:28] LABS: ABSOLUTE BASOPHIL COUNT 0 /CUMM (0.0-0.2); ABSOLUTE EOSINOPHIL COUNT 0.1 /CUMM (0.0-0.7); ABSOLUTE GRANULOCYTE CT 3.4 /CUMM (1.4-6.5); ABSOLUTE LYMPH COUNT 1.6 /CUMM (1.2-3.4); ABSOLUTE MONOCYTE COUNT 0.4 /CUMM (0.10-0.60); BASOPHIL % 0.4 % (0.0-2.0); EOSINOPHIL % 1.9 % (0-5); GRANULOCYTE % 61.6 % (42.2-75.2); HEMATOCRIT 39.1 % (42-52); MEAN CORPUSCULAR HGB 29.9 PG (27.0-31.0); MEAN CORPUSCULAR HGB CONC 33.4 G/DL (33.0-37.0); MEAN CORPUSCULAR VOLUME 89.5 FL (80.0-94.0); MEAN PLATELET VOLUME 8.3 FL (7.4-10.4); PLATELET COUNT 102 /CUMM (130-400); RBC DISTRIBUTION WIDTH 14.8 % (11.5-14.5); RED BLOOD CELL CT 4.37 /CUMM (4.70-6.10); WHITE BLOOD CELL COUNT 5.4 /CUMM (4.8-10.8)
[2017-10-26 14:32] VITALS: BP 110/76
--- NOTE | 2017-10-26 17:07 | ED PSY CRISIS COLLATERAL NOTE ---
Collateral Note Collateral Note Family/Inform/Daisy Contacts: Nurse Tiffanie informed that pt has declined crisis consult and is being discharged AMA.
== END 2017-10-26 17:11 | disposition left against medical advice (07) ==
LOC: ERH 12:06
PROVIDERS: Physician Assistant Medical
DX: F11.10 Opioid abuse, uncomplicated (principal); I10 Essential (primary) hypertension; E11.9 Type 2 diabetes mellitus without complications
CPT/HCPCS: 80307; 93005; 93010; 96374; G0480; J2310

== ENCOUNTER 2017-12-24 13:09 | Emergency (ER) | payer OTHER ==
[~2017-12-24] VITALS: Ht 177.8 cm; Wt 99.8 kg
[2017-12-24 13:21] VITALS: BP 174/94
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
[2017-12-24] MEDS ORDERED: MEDROL4 M2 PO (13:30)
== END 2017-12-24 13:51 ==
LOC: ERH 13:09
DX: G56.31 Lesion of radial nerve, right upper limb (principal)

== ENCOUNTER 2017-12-27 17:41 | Observation (INO) | payer OTHER ==
[~2017-12-27] VITALS: Ht 185.4 cm; Wt 108.9 kg
[~2017-12-27 17:41] MED LIST changes: +MEDROL4 M2 PO
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
[2017-12-27 18:15] LABS: ABSOLUTE BASOPHIL COUNT 0 /CUMM (0.0-0.2); ABSOLUTE EOSINOPHIL COUNT 0.1 /CUMM (0.0-0.7); ABSOLUTE GRANULOCYTE CT 7.5 /CUMM (1.4-6.5); ABSOLUTE LYMPH COUNT 1.8 /CUMM (1.2-3.4); ABSOLUTE MONOCYTE COUNT 0.5 /CUMM (0.10-0.60); BASOPHIL % 0.2 % (0.0-2.0); EOSINOPHIL % 0.5 % (0-5); GRANULOCYTE % 76.6 % (42.2-75.2); HEMATOCRIT 39.8 % (42-52); MEAN CORPUSCULAR HGB 30.3 PG (27.0-31.0); MEAN CORPUSCULAR HGB CONC 33.6 G/DL (33.0-37.0); MEAN CORPUSCULAR VOLUME 90.1 FL (80.0-94.0); MEAN PLATELET VOLUME 8.6 FL (7.4-10.4); PLATELET COUNT 133 /CUMM (130-400); RBC DISTRIBUTION WIDTH 14.5 % (11.5-14.5); RED BLOOD CELL CT 4.42 /CUMM (4.70-6.10); WHITE BLOOD CELL COUNT 9.8 /CUMM (4.8-10.8)
[2017-12-28 05:14] VITALS: BP 125/80
== END 2017-12-28 05:16 ==
LOC: ERH 17:41 → ERHI 19:07
PROVIDERS: Emergency Medicine
DX: F12.929 Cannabis use, unspecified with intoxication, unspecified (principal); F14.129 Cocaine abuse with intoxication, unspecified; F13.129 Sedative, hypnotic or anxiolytic abuse with intoxication, unspecified; F11.129 Opioid abuse with intoxication, unspecified; I10 Essential (primary) hypertension; B18.2 Chronic viral hepatitis C; E11.9 Type 2 diabetes mellitus without complications; F32.9 Major depressive disorder, single episode, unspecified; Z87.891 Personal history of nicotine dependence; Z79.899 Other long term (current) drug therapy
CPT/HCPCS: 6090; 80307; 81003; 84484-91; 93005; 93010; G0378; G0480

== ENCOUNTER 2017-12-29 14:36 | Emergency (ER) | payer OTHER ==
[~2017-12-29] VITALS: Ht 177.8 cm; Wt 129.3 kg
[2017-12-29 15:48] LABS: ABSOLUTE BASOPHIL COUNT 0 /CUMM (0.0-0.2); ABSOLUTE EOSINOPHIL COUNT 0.1 /CUMM (0.0-0.7); ABSOLUTE GRANULOCYTE CT 3.6 /CUMM (1.4-6.5); ABSOLUTE LYMPH COUNT 1.8 /CUMM (1.2-3.4); ABSOLUTE MONOCYTE COUNT 0.4 /CUMM (0.10-0.60); BASOPHIL % 0.5 % (0.0-2.0); EOSINOPHIL % 2.2 % (0-5); GRANULOCYTE % 60.7 % (42.2-75.2); HEMATOCRIT 38.5 % (42-52); MEAN CORPUSCULAR HGB 30.8 PG (27.0-31.0); MEAN CORPUSCULAR HGB CONC 34.3 G/DL (33.0-37.0); MEAN CORPUSCULAR VOLUME 89.8 FL (80.0-94.0); MEAN PLATELET VOLUME 8.2 FL (7.4-10.4); PLATELET COUNT 113 /CUMM (130-400); RBC DISTRIBUTION WIDTH 14.3 % (11.5-14.5); RED BLOOD CELL CT 4.29 /CUMM (4.70-6.10)
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
[2017-12-29 17:29] VITALS: BP 105/64
== END 2017-12-29 18:15 ==
LOC: ERH 14:36
PROVIDERS: Emergency Medicine
DX: F13.10 Sedative, hypnotic or anxiolytic abuse, uncomplicated (principal); F14.10 Cocaine abuse, uncomplicated; F12.10 Cannabis abuse, uncomplicated; F11.10 Opioid abuse, uncomplicated
CPT/HCPCS: 80307; G0480